=== PATIENT | male | born 1995 | race Two or more races ===

== ENCOUNTER 2020-06-20 19:00 | Emergency (ER) | payer BC, OTHER ==
[2020-06-20 19:23] VITALS: BP 133/93; PULSE 119; TEMP 97.9; BMI 26.3
[2020-06-20 20:53] LABS: POTASSIUM 4.1 mmol/L (3.5-5.1)
[2020-06-20 20:55] LABS: BASO % 0.3 % (0-2.0); EOS % 0.1 % (0-4.5); HEMATOCRIT 47.8 % (35.4-49); HEMOGLOBIN 15.7 GM/dL (11.7-16.9); LYMPH % 10.2 % (8-40); MCH 29.5 pg (25.7-33.7); MEAN CELL VOLUME 89.3 fl (80-96); MEAN PLT VOLUME 9.2 fl (7.5-11.1); MONO % 7.5 % (3.8-10.2); NEUT % 81.9 % (42.8-82.8); PLATELET COUNT 263 K/MM3 (134-434); RBC 5.35 M/mm3 (4.00-5.60); WHITE BLOOD COUNT 7.3 K/mm3 (4.0-10.0)
[2020-06-20] MEDS ORDERED: FAMOTIDINE 20 MG/50 ML IVPB 20 MG/50 ML MG IVPB ONE ×2 (20:56→21:01)
[2020-06-20] MEDS ORDERED: MAG HYDROX/AL HYDROX/SIMETH -MYLANTA- ORAL SUSPENSION PO ONE (20:56)
[2020-06-20 20:57] LABS: CALCIUM 9.6 mg/dL (8.5-10.1)
[2020-06-20 20:58] LABS: ALBUMIN 4.4 g/dl (3.4-5.0); BLOOD UREA NITROGEN 10.8 mg/dL (7-18)
[2020-06-20] MEDS ORDERED: MAG HYDROX/AL HYDROX/SIMETH 30 ML UNIT-DOSE CUP ONE (21:01)
[2020-06-20 21:02] LABS: BILIRUBIN,TOTAL 0.7 mg/dL (0.2-1)
== END 2020-06-20 22:42 | disposition home or self-care (01) ==
LOC: JER 19:00
PROC: 3E033NZ Introduction of Analgesics, Hypnotics, Sedatives into Peripheral Vein, Percutaneous Approach (ICD-10-PCS; principal; 2020-06-20)
DX: K27.3 Acute peptic ulcer, site unspecified, without hemorrhage or perforation (principal); R10.13 Epigastric pain
CPT/HCPCS: 36415; 80053; 83690; 83930; 85025; 93005; 93010; 99284-25